=== PATIENT | male | born 1955 | race Caucasian/White ===

== ENCOUNTER 2017-06-26 20:40 | Inpatient (IN) | payer MEDICAID ==
[~2017-06-26] VITALS: Ht 172.7 cm; Wt 73.6 kg
[2017-06-26] MEDS ORDERED: MORPHINE SULFATE 4 MG/ML, 1ML ONE ×2 (21:30→23:55)
[2017-06-26] MEDS ORDERED: ONDANSETRON 2MG/ML, 2ML ONE (21:30)
[2017-06-26] MEDS ORDERED: SODIUM CHLORIDE 0.9% 1,000ML IVBOLUS ONE (21:30)
[2017-06-26] MEDS ORDERED: ONDANSETRON 2MG/ML, 2ML IVPush ONE (21:30)
[2017-06-26] MEDS: MORPHINE SULFATE 4 MG/ML, 1ML IVPush PRN (21:36)
[2017-06-26 21:50] LABS: HEMOGLOBIN 15.9 g/dL (13.7-18.0)
[2017-06-26 22:04] LABS: ASPARTATE AMINO TRANSFERASE 26 U/L (15-37); BLOOD UREA NITROGEN 22 mg/dL (7-18)
[2017-06-26] MEDS ORDERED: OMNIPAQUE 350 MG/ML, 100ML BOTTLE ONE (22:50)
[2017-06-26] MEDS ORDERED: CEFTRIAXONE PMX 1GM/50ML 50 ML IV ONE (23:30)
[2017-06-26] MEDS ORDERED: GENTAMICIN PER PHARMACY MC PRN (23:30)
[2017-06-26] MEDS ORDERED: GENTAMICIN 340 MG in SODIUM CHLORIDE 0.9% 100 ML IV ONE (23:30)
[2017-06-26] MEDS ORDERED: CEFTRIAXONE PMX 1GM/50ML 50 ML ONE (23:55)
[2017-06-27] MEDS: MORPHINE SULFATE 4 MG/ML, 1ML IVPush PRN (00:14)
[2017-06-27] MEDS ORDERED: morphine SULFATE 10 MG/ML, 1ML IVPush ONE (01:00)
[2017-06-27] MEDS ORDERED: SODIUM CHLORIDE 0.9% 1,000 ML IV SCH (03:38)
[2017-06-27] MEDS ORDERED: POLYETHYLENE GLYCOL 17 GM PACKET PO PRN (04:00)
[2017-06-27] MEDS ORDERED: BISACODYL 10 MG SUPP PR PRN (04:00)
[2017-06-27] MEDS ORDERED: VANCOMYCIN PER PHARMACY MC PRN (04:00)
[2017-06-27] MEDS ORDERED: DOCUSATE 100 MG CAPSULE PO PRN (04:00)
[2017-06-27] MEDS ORDERED: ENOXAPARIN 40 MG/0.4 ML SQ SCH (04:00)
[2017-06-27 04:03] VITALS: BP 178/110
[2017-06-27] MEDS: morphine SULFATE 10 MG/ML, 1ML IVPush PRN ×5 (04:22→19:56)
[2017-06-27] MEDS ORDERED: VANCOMYCIN 1,400 MG in SODIUM CHLORIDE 0.9% 250 ML IV SCH (04:30)
[2017-06-27 05:28] VITALS: BP 174/103
[2017-06-27 05:33] LABS: HEMATOCRIT 47.7 % (39.2-51.8); HEMOGLOBIN 15.9 g/dL (13.7-18.0); WHITE BLOOD COUNT 17.9 x10^3/uL (3.4-10)
[2017-06-27 05:56] LABS: ASPARTATE AMINO TRANSFERASE 42 U/L (15-37); BLOOD UREA NITROGEN 17 mg/dL (7-18)
[2017-06-27] MEDS ORDERED: PHARMACOKINETIC MONITORING MC PRN (06:00)
[2017-06-27] MEDS ORDERED: PHARMACOKINETIC CONSULTATION MC ONE (06:00)
[2017-06-27 06:10] LABS: LACTATE DEHYDROGENASE 557 U/L (87-241)
[2017-06-27 06:15] LABS: IS PT STATUS REG ER OR PRE ER? NO
[2017-06-27 07:17] VITALS: BP 170/101
[2017-06-27] MEDS ORDERED: HEPARIN 25,000 UNITS/500ML PMX 500 ML IV PRN (08:30)
[2017-06-27] MEDS: ASPIRIN 81 MG TABLET EC PO SCH (08:42)
[2017-06-27] MEDS: NICOTINE 14MG/24 HR PATCH.TD24 TD SCH (08:42)
[2017-06-27] MEDS ORDERED: ONDANSETRON 2MG/ML, 2ML IVPush PRN (09:00)
[2017-06-27] MEDS ORDERED: HEPARIN 5,000 UNITS/ML, 1ML IV ONE (09:00)
[2017-06-27] MEDS: FAMOTIDINE 20 MG TABLET PO SCH ×2 (09:05→19:55)
[2017-06-27 11:40] LABS: IS PT STATUS REG ER OR PRE ER? NO
[2017-06-27] MEDS: AMLODIPINE 5 MG TABLET PO SCH (11:42)
[2017-06-27] MEDS: LISINOPRIL 10 MG TABLET PO SCH (11:42)
[2017-06-27 12:14] LABS: PATH.CAST-FLAG NOT PRESENT; SPERM-FLAG NOT PRESENT; SRC-FLAG NOT PRESENT; XTAL-FLAG NOT PRESENT; YLC-FLAG NOT PRESENT
[2017-06-27 12:20] VITALS: BP 172/113
[2017-06-27] MEDS: HEPARIN 25,000 UNITS/500ML PMX 500 ML IV PRN (13:56)
[2017-06-27] MEDS ORDERED: CYCL-259 PO (16:46)
[2017-06-27] MEDS ORDERED: CLOP75TA52 PO (16:47)
[2017-06-27] MEDS ORDERED: LISI-420 PO (16:47)
[2017-06-27] MEDS ORDERED: TRAZ50TA18 PO (16:47)
[2017-06-27] MEDS ORDERED: CHOL500050 PO (16:47)
[2017-06-27] MEDS ORDERED: ATOR20TA9 PO (16:47)
[2017-06-27] MEDS ORDERED: OXYC10TA72 PO (16:47)
[2017-06-27] MEDS ORDERED: PANT40GR PO (16:47)
[2017-06-27] MEDS: CEFTRIAXONE PMX 1GM/50ML 50 ML IV SCH (19:55)
[2017-06-27 20:16] VITALS: BP 160/94
[2017-06-27] MEDS: HEPARIN 5,000 UNITS/ML, 1ML IV PRN (21:29)
[2017-06-27] MEDS: TRAZODONE 100MG TABLET PO PRN (21:32)
[2017-06-28 01:22] VITALS: BP 148/90
[2017-06-28 03:44] LABS: HEMOGLOBIN 16.2 g/dL (13.7-18.0)
[2017-06-28 03:52] LABS: ASPARTATE AMINO TRANSFERASE 62 U/L (15-37); BLOOD UREA NITROGEN 12 mg/dL (7-18)
[2017-06-28] MEDS: morphine SULFATE 10 MG/ML, 1ML IVPush PRN ×6 (03:57→23:35)
[2017-06-28 07:39] VITALS: BP 154/97
[2017-06-28] MEDS: LISINOPRIL 10 MG TABLET PO SCH (08:13)
[2017-06-28] MEDS: FAMOTIDINE 20 MG TABLET PO SCH ×2 (08:13→20:11)
[2017-06-28] MEDS: ASPIRIN 81 MG TABLET EC PO SCH (08:14)
[2017-06-28] MEDS: NICOTINE 14MG/24 HR PATCH.TD24 TD SCH (08:14)
[2017-06-28] MEDS: AMLODIPINE 5 MG TABLET PO SCH (08:14)
[2017-06-28] MEDS: HEPARIN 5,000 UNITS/ML, 1ML IV PRN ×2 (10:09→23:58)
[2017-06-28] MEDS: HEPARIN 25,000 UNITS/500ML PMX 500 ML IV PRN (13:37)
[2017-06-28 14:01] VITALS: BP 150/94
[2017-06-28 16:06] VITALS: BP 142/89
[2017-06-28 16:53] LABS: BLOOD UREA NITROGEN 15 mg/dL (7-18)
[2017-06-28] MEDS: CEFTRIAXONE PMX 1GM/50ML 50 ML IV SCH (20:10)
[2017-06-28] MEDS: TRAZODONE 100MG TABLET PO PRN (20:11)
[2017-06-28 20:21] VITALS: BP 116/72
[2017-06-29] MEDS: HEPARIN 25,000 UNITS/500ML PMX 500 ML IV PRN ×2 (00:05→08:20)
[2017-06-29 01:46] VITALS: BP 113/71
[2017-06-29] MEDS: morphine SULFATE 10 MG/ML, 1ML IVPush PRN (04:15)
[2017-06-29 06:06] LABS: WHITE BLOOD COUNT 19.1 x10^3/uL (3.4-10)
[2017-06-29] MEDS: METOPROLOL SUCCINATE 25 MG TAB.ER.24H PO SCH (06:18)
[2017-06-29 06:23] LABS: ASPARTATE AMINO TRANSFERASE 21 U/L (15-37); BLOOD UREA NITROGEN 15 mg/dL (7-18)
[2017-06-29 06:42] VITALS: BP 127/82
[2017-06-29] MEDS: OXYcodone IR 5MG TABLET PO SCH ×4 (08:12→20:49)
[2017-06-29] MEDS ORDERED: REGADENOSON 0.4 MG/5 ML SYRINGE ONE (08:25)
[2017-06-29] MEDS: LISINOPRIL 10 MG TABLET PO SCH (11:31)
[2017-06-29] MEDS: FAMOTIDINE 20 MG TABLET PO SCH ×2 (11:31→20:49)
[2017-06-29] MEDS: AMLODIPINE 5 MG TABLET PO SCH (11:31)
[2017-06-29] MEDS: ASPIRIN 81 MG TABLET EC PO SCH (11:31)
[2017-06-29] MEDS: NICOTINE 14MG/24 HR PATCH.TD24 TD SCH (11:31)
[2017-06-29] MEDS: HEPARIN 5,000 UNITS/ML, 1ML IV PRN (12:41)
[2017-06-29 12:54] VITALS: BP 110/66
[2017-06-29] MEDS ORDERED: WARFARIN 7.5 MG TABLET PO-COUM ONE (18:00)
[2017-06-29 19:59] VITALS: BP 105/67
[2017-06-29] MEDS: CEFTRIAXONE PMX 1GM/50ML 50 ML IV SCH (20:49)
[2017-06-29] MEDS: TRAZODONE 100MG TABLET PO PRN (20:50)
[2017-06-30] MEDS: HEPARIN 25,000 UNITS/500ML PMX 500 ML IV PRN ×2 (01:23→16:00)
[2017-06-30 01:30] VITALS: BP 102/69
[2017-06-30 01:35] LABS: HEMATOCRIT 40.3 % (39.2-51.8); HEMOGLOBIN 13.2 g/dL (13.7-18.0); WHITE BLOOD COUNT 15.3 x10^3/uL (3.4-10)
[2017-06-30] MEDS: HEPARIN 5,000 UNITS/ML, 1ML IV PRN (02:24)
[2017-06-30] MEDS: morphine SULFATE 10 MG/ML, 1ML IVPush PRN (03:08)
[2017-06-30 06:01] LABS: BLOOD UREA NITROGEN 19 mg/dL (7-18)
[2017-06-30 06:04] VITALS: BP 136/91
[2017-06-30] MEDS: METOPROLOL SUCCINATE 25 MG TAB.ER.24H PO SCH (06:05)
[2017-06-30 07:20] VITALS: BP 111/86
[2017-06-30] MEDS: FAMOTIDINE 20 MG TABLET PO SCH ×2 (08:34→20:43)
[2017-06-30] MEDS: AMLODIPINE 5 MG TABLET PO SCH (08:34)
[2017-06-30] MEDS: LISINOPRIL 10 MG TABLET PO SCH (08:34)
[2017-06-30] MEDS: OXYcodone IR 5MG TABLET PO SCH ×3 (08:37→20:44)
[2017-06-30] MEDS: NICOTINE 14MG/24 HR PATCH.TD24 TD SCH (08:40)
[2017-06-30] MEDS: DOCUSATE 100 MG CAPSULE PO SCH ×2 (08:46→20:43)
[2017-06-30] MEDS: CEFUROXIME 500 MG TABLET PO SCH ×2 (10:48→20:43)
[2017-06-30] MEDS: WARFARIN MODERAT DOSE PROTOCOL XX SCH (12:00)
[2017-06-30 15:42] VITALS: BP 110/75
[2017-06-30] MEDS ORDERED: WARFARIN 7.5 MG TABLET PO-COUM ONE (18:00)
[2017-06-30 19:50] VITALS: BP 113/81
[2017-06-30] MEDS: TRAZODONE 100MG TABLET PO PRN (20:43)
[2017-07-01 00:58] VITALS: BP 145/94
[2017-07-01 05:23] LABS: HEMATOCRIT 42.5 % (39.2-51.8); HEMOGLOBIN 14.3 g/dL (13.7-18.0); WHITE BLOOD COUNT 13.3 x10^3/uL (3.4-10)
[2017-07-01 05:31] LABS: ANTI-Xa-UNFRACTIONATED HEP 0.56 IU/mL (0.30-0.70)
[2017-07-01 05:33] VITALS: BP 126/90
[2017-07-01] MEDS: METOPROLOL SUCCINATE 25 MG TAB.ER.24H PO SCH (05:34)
[2017-07-01 05:36] LABS: ASPARTATE AMINO TRANSFERASE 17 U/L (15-37); BLOOD UREA NITROGEN 16 mg/dL (7-18)
[2017-07-01] MEDS: HEPARIN 25,000 UNITS/500ML PMX 500 ML IV PRN ×2 (06:18→20:48)
[2017-07-01 07:50] VITALS: BP 101/60
[2017-07-01] MEDS: OXYcodone IR 5MG TABLET PO SCH ×3 (07:53→20:41)
[2017-07-01] MEDS: DOCUSATE 100 MG CAPSULE PO SCH ×2 (09:53→20:40)
[2017-07-01] MEDS: NICOTINE 14MG/24 HR PATCH.TD24 TD SCH (09:53)
[2017-07-01] MEDS: AMLODIPINE 5 MG TABLET PO SCH (09:54)
[2017-07-01] MEDS: CEFUROXIME 500 MG TABLET PO SCH ×2 (09:54→20:40)
[2017-07-01] MEDS: LISINOPRIL 10 MG TABLET PO SCH (09:54)
[2017-07-01] MEDS: FAMOTIDINE 20 MG TABLET PO SCH ×2 (10:00→20:40)
[2017-07-01] MEDS: WARFARIN MODERAT DOSE PROTOCOL XX SCH (12:00)
[2017-07-01 13:11] VITALS: BP 111/74
[2017-07-01] MEDS: CITALOPRAM 20 MG TABLET PO SCH (16:22)
[2017-07-01] MEDS ORDERED: WARFARIN 5 MG TABLET PO-COUM SCH (18:00)
[2017-07-01 21:00] VITALS: BP 143/92
[2017-07-01] MEDS: TRAZODONE 100MG TABLET PO PRN (22:23)
[2017-07-02 01:25] VITALS: BP 94/64
[2017-07-02 04:56] VITALS: BP 133/84
[2017-07-02] MEDS: METOPROLOL SUCCINATE 25 MG TAB.ER.24H PO SCH (04:56)
[2017-07-02 05:27] LABS: ANTI-Xa-UNFRACTIONATED HEP 0.46 IU/mL (0.30-0.70)
[2017-07-02] MEDS: OXYcodone IR 5MG TABLET PO SCH ×2 (06:27→16:33)
[2017-07-02 08:00] VITALS: BP 152/96
[2017-07-02] MEDS: DOCUSATE 100 MG CAPSULE PO SCH ×2 (09:12→20:28)
[2017-07-02] MEDS: CEFUROXIME 500 MG TABLET PO SCH ×2 (09:12→20:27)
[2017-07-02] MEDS: FAMOTIDINE 20 MG TABLET PO SCH ×2 (09:12→20:26)
[2017-07-02] MEDS: CITALOPRAM 20 MG TABLET PO SCH (09:12)
[2017-07-02] MEDS: LISINOPRIL 10 MG TABLET PO SCH (09:13)
[2017-07-02] MEDS: NICOTINE 14MG/24 HR PATCH.TD24 TD SCH (09:13)
[2017-07-02] MEDS: WARFARIN MODERAT DOSE PROTOCOL XX SCH (12:04)
[2017-07-02 12:32] VITALS: BP 132/87
[2017-07-02] MEDS: HEPARIN 25,000 UNITS/500ML PMX 500 ML IV PRN (12:55)
[2017-07-02] MEDS ORDERED: WARFARIN 7.5 MG TABLET PO-COUM ONE (18:00)
[2017-07-02 18:55] VITALS: BP 140/85
[2017-07-02] MEDS: TRAZODONE 100MG TABLET PO PRN (20:27)
[2017-07-03 01:00] VITALS: BP 124/85
[2017-07-03] MEDS: OXYcodone IR 5MG TABLET PO PRN ×3 (01:06→17:35)
[2017-07-03] MEDS: HEPARIN 25,000 UNITS/500ML PMX 500 ML IV PRN ×2 (05:06→20:58)
[2017-07-03] MEDS: METOPROLOL SUCCINATE 25 MG TAB.ER.24H PO SCH (05:07)
[2017-07-03 06:00] LABS: ANTI-Xa-UNFRACTIONATED HEP 0.36 IU/mL (0.30-0.70)
[2017-07-03 06:05] LABS: HEMATOCRIT 40.3 % (39.2-51.8); HEMOGLOBIN 13.6 g/dL (13.7-18.0); WHITE BLOOD COUNT 9.6 x10^3/uL (3.4-10)
[2017-07-03 06:10] LABS: BLOOD UREA NITROGEN 16 mg/dL (7-18)
[2017-07-03 07:48] VITALS: BP 130/75
[2017-07-03 08:25] VITALS: BP 130/75
[2017-07-03] MEDS: DOCUSATE 100 MG CAPSULE PO SCH ×2 (09:28→21:08)
[2017-07-03] MEDS: NICOTINE 14MG/24 HR PATCH.TD24 TD SCH (09:28)
[2017-07-03] MEDS: CITALOPRAM 20 MG TABLET PO SCH (09:28)
[2017-07-03] MEDS: LISINOPRIL 10 MG TABLET PO SCH (09:28)
[2017-07-03] MEDS: CEFUROXIME 500 MG TABLET PO SCH (11:08)
[2017-07-03] MEDS ORDERED: MAGNESIUM SULFATE PMX 2GM/50ML 50 ML IV ONE (12:00)
[2017-07-03] MEDS: WARFARIN MODERAT DOSE PROTOCOL XX SCH (12:23)
[2017-07-03 15:06] VITALS: BP 133/89
[2017-07-03] MEDS ORDERED: WARFARIN 7.5 MG TABLET PO-COUM ONE (18:00)
[2017-07-03 20:32] VITALS: BP 143/85
[2017-07-03] MEDS: TRAZODONE 100MG TABLET PO PRN (21:08)
[2017-07-04] MEDS: OXYcodone IR 5MG TABLET PO PRN ×3 (01:25→17:25)
[2017-07-04 01:30] VITALS: BP 145/85
[2017-07-04 04:41] LABS: HEMATOCRIT 40.9 % (39.2-51.8); HEMOGLOBIN 13.7 g/dL (13.7-18.0); WHITE BLOOD COUNT 11.5 x10^3/uL (3.4-10)
[2017-07-04 04:45] LABS: ANTI-Xa-UNFRACTIONATED HEP 0.49 IU/mL (0.30-0.70)
[2017-07-04 04:52] LABS: BLOOD UREA NITROGEN 18 mg/dL (7-18)
[2017-07-04] MEDS: METOPROLOL SUCCINATE 25 MG TAB.ER.24H PO SCH (05:47)
[2017-07-04] MEDS: CITALOPRAM 20 MG TABLET PO SCH (09:07)
[2017-07-04] MEDS: DOCUSATE 100 MG CAPSULE PO SCH ×2 (09:08→20:51)
[2017-07-04] MEDS: LISINOPRIL 10 MG TABLET PO SCH (09:08)
[2017-07-04] MEDS: NICOTINE 14MG/24 HR PATCH.TD24 TD SCH (09:09)
[2017-07-04] MEDS: WARFARIN MODERAT DOSE PROTOCOL XX SCH (12:00)
[2017-07-04 12:47] VITALS: BP 107/61
[2017-07-04] MEDS: HEPARIN 25,000 UNITS/500ML PMX 500 ML IV PRN (12:58)
[2017-07-04] MEDS ORDERED: WARFARIN 7.5 MG TABLET PO-COUM SCH (18:00)
[2017-07-04] MEDS: TRAZODONE 100MG TABLET PO PRN (20:52)
[2017-07-05 01:48] VITALS: BP 124/90
[2017-07-05] MEDS: OXYcodone IR 5MG TABLET PO PRN ×2 (01:52→09:57)
[2017-07-05] MEDS: METOPROLOL SUCCINATE 25 MG TAB.ER.24H PO SCH (05:26)
[2017-07-05] MEDS: HEPARIN 25,000 UNITS/500ML PMX 500 ML IV PRN (05:27)
[2017-07-05 07:10] VITALS: BP 127/90
[2017-07-05] MEDS: DOCUSATE 100 MG CAPSULE PO SCH (09:56)
[2017-07-05] MEDS: CITALOPRAM 20 MG TABLET PO SCH (09:56)
[2017-07-05] MEDS: LISINOPRIL 10 MG TABLET PO SCH (09:57)
[2017-07-05] MEDS: NICOTINE 14MG/24 HR PATCH.TD24 TD SCH (09:57)
[2017-07-05] MEDS: WARFARIN MODERAT DOSE PROTOCOL XX SCH (12:00)
[2017-07-05 13:10] VITALS: BP 113/59
[2017-07-05] MEDS ORDERED: LISI-167 PO (14:06)
[2017-07-05] MEDS ORDERED: NICO1PAT13 TD (14:06)
[2017-07-05] MEDS ORDERED: WARF7.5T PO-COUM (14:06)
[2017-07-05] MEDS ORDERED: METO25TA91 PO (14:06)
[2017-07-05] MEDS ORDERED: WARFARIN 7.5 MG TABLET PO-COUM SCH (18:00)
== END 2017-07-05 16:40 | disposition home or self-care (01) | DRG 699 ==
LOC: ED 23:59 → EDIP 06-27 01:14 → 3NW 06-27 03:15 → 4WST 06-27 06:29 → DCLOUNGE 07-05 16:12
PROVIDERS: ADMIT Hospitalist; ATTEND Internal Medicine
DX: N28.0 Ischemia and infarction of kidney (principal); D68.69 Other thrombophilia; I11.9 Hypertensive heart disease without heart failure; I48.92 Unspecified atrial flutter; D72.829 Elevated white blood cell count, unspecified; E78.00 Pure hypercholesterolemia, unspecified; E78.5 Hyperlipidemia, unspecified; F17.200 Nicotine dependence, unspecified, uncomplicated; F32.9 Major depressive disorder, single episode, unspecified; F41.9 Anxiety disorder, unspecified; G89.4 Chronic pain syndrome; I27.2 Other secondary pulmonary hypertension; M19.90 Unspecified osteoarthritis, unspecified site; M54.9 Dorsalgia, unspecified; I48.0 Paroxysmal atrial fibrillation; K21.9 Gastro-esophageal reflux disease without esophagitis; K59.00 Constipation, unspecified; Z79.01 Long term (current) use of anticoagulants; Z79.891 Long term (current) use of opiate analgesic; Z82.49 Family history of ischemic heart disease and other diseases of the circulatory system; Z85.46 Personal history of malignant neoplasm of prostate; Z86.73 Personal history of transient ischemic attack (TIA), and cerebral infarction without residual deficits; Z90.89 Acquired absence of other organs; Z88.8 Allergy status to other drugs, medicaments and biological substances; Z88.6 Allergy status to analgesic agent
CPT/HCPCS: 36415; 71010; 74177; 76775; 78452; 80048; 80053; 80061; 81001; 82040; 83605; 83615; 83735; 84100; 84145; 84484; 85025; 85520; 85610; 85651; 87040; 93005; 93017; 93306; 93970; 93975; 96361; 96365; 96375; 96376; J0696; J1644; J2405; J2785; J3370; Q9967; A9502; C9898; J1580; J2270; J3475; J7030; J7050

== ENCOUNTER 2019-02-06 17:45 | Inpatient (IN) | payer MEDICARE, MEDICAID ==
[~2019-02-06] VITALS: Ht 172.7 cm; Wt 73.5 kg
[~2019-02-06 17:45] MED LIST: ATOR20TA37 PO; CHOL500050 PO; CLOP75TA52 PO; CYCL-259 PO; LISI-167 PO; LISI-420 PO; METO25TA91 PO; NICO-486 TD; OXYC10TA72 PO; PANT40GR PO; TRAZ50TA66 PO; WARF-36 PO; WARF7.5T PO-COUM
[2019-02-06] MEDS ORDERED: SODIUM CHLORIDE 0.9% 1,000ML IVBOLUS ONE (18:30)
[2019-02-06] MEDS ORDERED: SODIUM CHLORIDE FLUSH 10ML SYR IVF ONE (18:30)
[2019-02-06] MEDS ORDERED: OXYC5TAB3 PO (18:37)
[2019-02-06] MEDS ORDERED: CETI10CA PO (18:39)
[2019-02-06] MEDS ORDERED: TRAZ50TA66 PO (18:40)
[2019-02-06 18:43] LABS: MEAN CORPUSCULAR HEMOGLOBIN 32.3 pg (27.5-34.5); MEAN CORPUSCULAR HGB CONC 33.9 g/dL (33.2-36.2); MEAN CORPUSCULAR VOLUME 95.4 fL (81-97); MEAN PLATELET VOLUME 8.3 fL (7.4-10.4); PLATELET COUNT 248 x10^3/uL (130-400); RED BLOOD COUNT 5.51 x10^6/uL (4.38-5.82); RED CELL DISTRIBUTION WIDTH 13.3 % (9.4-14.8)
[2019-02-06 18:46] LABS: INTERNATIONAL NORMALIZED RATIO 2.84 (0.93-1.1); PROTHROMBIN TIME 28.6 Seconds (9.6-11.5)
[2019-02-06 18:49] LABS: ALANINE AMINOTRANSFERASE 25 U/L (12-78); ALBUMIN 3.9 g/dL (3.4-5.0); ANION GAP 8 mmol/L (5-15); CALCIUM 8.9 mg/dL (8.5-10.1); CHLORIDE 106 mmol/L (98-107); CREATININE 1.14 mg/dL (0.7-1.3)
[2019-02-06 18:51] LABS: ALKALINE PHOSPHATASE 47 U/L (45-117); BILIRUBIN,TOTAL 1.6 mg/dL (0.2-1.0); TOTAL PROTEIN 7.1 g/dL (6.4-8.2)
[2019-02-06] MEDS ORDERED: MORPHINE SULFATE 4 MG/ML, 1ML IVPush ONE (19:00)
[2019-02-06] MEDS ORDERED: ONDANSETRON 2MG/ML, 2ML IVPush ONE (19:00)
--- NOTE | 2019-02-06 19:00 | NUR ---
PT BEDSIDE REPORT FROM [place] GUSTAFSON. THIS RN TO ASSUME CARE OF PT. PT REQUESTING PAIN MEDICATION. MD AWARE. AWAITING NEW ORDERS.
[2019-02-06] MEDS ORDERED: ONDANSETRON 2MG/ML, 2ML ONE (19:03)
[2019-02-06] MEDS ORDERED: MORPHINE SULFATE 4 MG/ML, 1ML ONE (19:03)
[2019-02-06 19:32] LABS: MD YES
--- NOTE | 2019-02-06 19:33 | NUR ---
PT MEDICATED PER DEC. NO IMMEDIATE NEEDS. TBADM. AWAITING ADM ORDERS.
[2019-02-06 19:34] LABS: BAND#(MANUAL) 0.42 x10^3/uL; BANDS%(MANUAL) 2 % (0-7); LYMPH#(MANUAL) 1.68 x10^3/uL (1-3.4); LYMPHS% (MANUAL) 8 % (22-44); MONOS#(MANUAL) 1.68 x10^3/uL (0.3-2.7); MONOS% (MANUAL) 8 % (2-9); SEG#(MANUAL) 17.22 x10^3/uL (1.8-6.8); SEGS% (MANUAL) 82 % (42-75)
[2019-02-06 19:35] LABS: <PLATELET ESTIMATE> ADEQUATE; <RBC MORPHOLOGY> NORMAL
[2019-02-06 19:36] LABS: <PLT MORPHOLOGY> NORMAL PLT MORPH
[2019-02-06] MEDS ORDERED: METRONIDAZOLE PMX 500MG/100ML 100 ML ONE (19:36)
[2019-02-06] MEDS ORDERED: CEFTRIAXONE PMX 1GM/50ML 50 ML ONE (19:37)
[2019-02-06] MEDS ORDERED: CEFTRIAXONE PMX 1GM/50ML 50 ML IV ONE (20:00)
[2019-02-06] MEDS ORDERED: METRONIDAZOLE PMX 500MG/100ML 100 ML IV ONE (20:00)
--- NOTE | 2019-02-06 20:09 | NUR ---
AT BEDSIDE FOR REASSESSMENT. 2ND ABX INITIATED AT HTIS TIME.
--- NOTE | 2019-02-06 20:36 | NUR ---
PT TBADM. AWAITING ADM ORDER.
[2019-02-06] MEDS: METRONIDAZOLE PMX 500MG/100ML 100 ML IV SCH (20:50)
[2019-02-06] MEDS: SODIUM CHLORIDE 0.9% 1,000 ML IV SCH (20:57)
[2019-02-06] MEDS ORDERED: PHYTONADIONE 5 MG TABLET PO ONE (21:00)
[2019-02-06] MEDS ORDERED: CEFTRIAXONE PMX 1GM/50ML 50 ML IV SCH (21:00)
[2019-02-06] MEDS ORDERED: ACETAMINOPHEN 325 MG TABLET PO PRN (21:00)
[2019-02-06] MEDS ORDERED: CYCLOBENZAPRINE 10 MG TABLET PO PRN (21:00)
[2019-02-06] MEDS ORDERED: ONDANSETRON 2MG/ML, 2ML IVPush PRN (21:00)
[2019-02-06 21:21] LABS: INTERNATIONAL NORMALIZED RATIO 2.79 (0.93-1.1); PROTHROMBIN TIME 28.2 Seconds (9.6-11.5)
[2019-02-06] MEDS ORDERED: MAGNESIUM CITRATE 300ML ORAL SOL PO ONE (22:00)
[2019-02-06 22:09] VITALS: BP 160/92
[2019-02-06 22:22] LABS: BILIRUBIN, DIRECT 0.4 mg/dL (0.1-0.2)
[2019-02-06 22:23] LABS: BILIRUBIN,INDIRECT 1.2 mg/dL (0.0-2.0); BILIRUBIN,TOTAL 1.6 mg/dL (0.2-1.0)
[2019-02-06] MEDS: morphine SULFATE 10 MG/ML, 1ML IVPush PRN (22:54)
[2019-02-06] MEDS: TRAZODONE 100MG TABLET PO SCH (22:54)
[2019-02-06] MEDS: ATORVASTATIN 20 MG TABLET PO SCH (22:56)
[2019-02-07] MEDS ORDERED: OMNIPAQUE 350 MG/ML, 100ML BOTTLE ONE (02:16)
[2019-02-07] MEDS: morphine SULFATE 10 MG/ML, 1ML IVPush PRN ×3 (02:46→08:20)
[2019-02-07 02:54] VITALS: BP 135/83
[2019-02-07 03:51] LABS: CLOSTRIDIUM DIFFICILE ANTIGEN NEGATIVE; CLOSTRIDIUM DIFFICILE TOXIN NEGATIVE (Negative)
[2019-02-07] MEDS: METRONIDAZOLE PMX 500MG/100ML 100 ML IV SCH (05:33)
[2019-02-07] MEDS: METOPROLOL SUCCINATE 25 MG TAB.ER.24H PO SCH (05:34)
[2019-02-07 06:58] LABS: ALANINE AMINOTRANSFERASE 20 U/L (12-78); ALBUMIN 3.5 g/dL (3.4-5.0); ANION GAP 2 mmol/L (5-15); CALCIUM 8.2 mg/dL (8.5-10.1); CHLORIDE 108 mmol/L (98-107); CREATININE 1.03 mg/dL (0.7-1.3)
[2019-02-07 06:59] LABS: MEAN CORPUSCULAR HGB CONC 34.4 g/dL (33.2-36.2); MEAN CORPUSCULAR VOLUME 95.8 fL (81-97); MEAN PLATELET VOLUME 8.4 fL (7.4-10.4); PLATELET COUNT 220 x10^3/uL (130-400); RED BLOOD COUNT 4.94 x10^6/uL (4.38-5.82); RED CELL DISTRIBUTION WIDTH 13.8 % (9.4-14.8)
[2019-02-07 07:00] LABS: ALKALINE PHOSPHATASE 38 U/L (45-117); BILIRUBIN,TOTAL 1.3 mg/dL (0.2-1.0); TOTAL PROTEIN 6.2 g/dL (6.4-8.2)
[2019-02-07 07:29] LABS: BASOPHILS # (AUTO) 0.08 x10^3/uL (0-0.1); BASOPHILS % (AUTO) 0 % (0-1); EOSINOPHILS # (AUTO) 0.09 x10^3/uL (0-0.4); EOSINOPHILS % (AUTO) 1 % (1-7); LYMPHOCYTES % (AUTO) 14 % (22-44); MD SCAN; MONOCYTES % (AUTO) 6 % (2-9); NEUTROPHILS # (AUTO) 14.57 x10^3/uL (1.8-6.8); NEUTROPHILS % (AUTO) 79 % (42-75)
[2019-02-07] MEDS ORDERED: ERGOCALCIFEROL 50,000 UNIT CAPSULE PO SCH (08:00)
[2019-02-07] MEDS: LISINOPRIL 10 MG TABLET PO SCH (08:05)
[2019-02-07] MEDS ORDERED: PANTOPRAZOLE GRAN. PKT 40 MG PO SCH (09:00)
[2019-02-07] MEDS ORDERED: FENTANYL PF 100 MCG/2ML ONE ×2 (09:32→09:33)
[2019-02-07] MEDS ORDERED: MIDAZOLAM 1 MG/ML, 5ML ONE (09:33)
[2019-02-07] MEDS ORDERED: OXYcodone IR 5MG TABLET ONE (11:48)
[2019-02-07] MEDS: OXYcodone IR 5MG TABLET PO PRN ×2 (11:51→20:33)
[2019-02-07] MEDS ORDERED: OXYcodone 5 MG/5 ML ORAL.SOL UDC PO PRN (12:00)
[2019-02-07 12:17] VITALS: BP 107/68
[2019-02-07 12:34] LABS: CRYPTOSPORIDIUM ANTIGEN Negative (Negative)
[2019-02-07] MEDS: SODIUM CHLORIDE 0.9% 1,000 ML IV SCH (13:32)
[2019-02-07] MEDS ORDERED: NICOTINE 14MG/24 HR PATCH.TD24 TD SCH (16:30)
[2019-02-07] MEDS ORDERED: WARFARIN 5 MG TABLET PO-COUM SCH (18:00)
[2019-02-07 19:56] VITALS: BP 123/86
[2019-02-07] MEDS: ATORVASTATIN 20 MG TABLET PO SCH (20:33)
[2019-02-07] MEDS: TRAZODONE 100MG TABLET PO SCH (20:33)
[2019-02-07] MEDS ORDERED: CETIRIZINE 10 MG TABLET PO SCH (21:00)
[2019-02-08 01:02] VITALS: BP 103/61
[2019-02-08] MEDS: SODIUM CHLORIDE 0.9% 1,000 ML IV SCH (03:20)
[2019-02-08] MEDS: OXYcodone IR 5MG TABLET PO PRN (05:21)
[2019-02-08] MEDS: METOPROLOL SUCCINATE 25 MG TAB.ER.24H PO SCH (05:21)
[2019-02-08] MEDS ORDERED: PANTOPROZOLE 40MG TABLET PO SCH (06:00)
[2019-02-08 08:11] VITALS: BP 136/86
[2019-02-08] MEDS: LISINOPRIL 10 MG TABLET PO SCH (08:13)
[2019-02-08 08:19] LABS: BASOPHILS # (AUTO) 0.07 x10^3/uL (0-0.1); BASOPHILS % (AUTO) 1 % (0-1); EOSINOPHILS # (AUTO) 0.24 x10^3/uL (0-0.4); EOSINOPHILS % (AUTO) 2 % (1-7); LYMPHOCYTES # (AUTO) 2.19 x10^3/uL (1-3.4); LYMPHOCYTES % (AUTO) 19 % (22-44); MD NO; MEAN CORPUSCULAR HEMOGLOBIN 31.4 pg (27.5-34.5); MEAN CORPUSCULAR HGB CONC 32.6 g/dL (33.2-36.2); MEAN CORPUSCULAR VOLUME 96.2 fL (81-97); MEAN PLATELET VOLUME 8.1 fL (7.4-10.4); MONOCYTES # (AUTO) 0.64 x10^3/uL (0.2-0.8); MONOCYTES % (AUTO) 6 % (2-9); NEUTROPHILS # (AUTO) 8.52 x10^3/uL (1.8-6.8); NEUTROPHILS % (AUTO) 73 % (42-75); PLATELET COUNT 209 x10^3/uL (130-400); RED BLOOD COUNT 4.75 x10^6/uL (4.38-5.82); RED CELL DISTRIBUTION WIDTH 13.7 % (9.4-14.8)
[2019-02-08 08:29] LABS: ANION GAP 7 mmol/L (5-15); CALCIUM 7.9 mg/dL (8.5-10.1); CHLORIDE 110 mmol/L (98-107); CREATININE 0.92 mg/dL (0.7-1.3)
[2019-02-08] MEDS ORDERED: OXYcodone IR 5MG TABLET PO ONE (11:00)
[2019-02-08 13:15] VITALS: BP 116/76
== END 2019-02-08 13:35 | disposition home or self-care (01) | DRG 394 ==
LOC: ED 18:58 → EDIP 20:56 → 4NOR 22:00
PROVIDERS: ADMIT Family Medicine; ATTEND Family Medicine
PROC: 0DBM8ZX Excision of Descending Colon, Via Natural or Artificial Opening Endoscopic, Diagnostic (ICD-10-PCS; 2019-02-07)
PROC: 0DBL8ZX Excision of Transverse Colon, Via Natural or Artificial Opening Endoscopic, Diagnostic (ICD-10-PCS; 2019-02-07)
PROC: 0DBM8ZZ Excision of Descending Colon, Via Natural or Artificial Opening Endoscopic (ICD-10-PCS; principal; 2019-02-07 09:00)
DX: K55.039 Acute (reversible) ischemia of large intestine, extent unspecified (principal); C25.9 Malignant neoplasm of pancreas, unspecified; I27.20 Pulmonary hypertension, unspecified; I48.2 Chronic atrial fibrillation; K21.9 Gastro-esophageal reflux disease without esophagitis; G89.29 Other chronic pain; D12.3 Benign neoplasm of transverse colon; D12.4 Benign neoplasm of descending colon; F17.210 Nicotine dependence, cigarettes, uncomplicated; F32.9 Major depressive disorder, single episode, unspecified; I10 Essential (primary) hypertension; K59.03 Drug induced constipation; M06.9 Rheumatoid arthritis, unspecified; T40.2X5A Adverse effect of other opioids, initial encounter; T45.515A Adverse effect of anticoagulants, initial encounter; Y92.89 Other specified places as the place of occurrence of the external cause; Z79.01 Long term (current) use of anticoagulants; Z79.891 Long term (current) use of opiate analgesic; Z80.1 Family history of malignant neoplasm of trachea, bronchus and lung; Z82.49 Family history of ischemic heart disease and other diseases of the circulatory system; Z85.07 Personal history of malignant neoplasm of pancreas; Z85.46 Personal history of malignant neoplasm of prostate; Z90.89 Acquired absence of other organs
CPT/HCPCS: 36415; 74174; 80048; 80053; 82247; 82248; 83605; 85014; 85018; 85025; 85610; 86850; 86900; 87046; 87324; 87328; 87329; 87427; 88305; 89055; 93005; 96361; 96365; 96375; G0378; J0696; J2250; J2405; J3010; Q9967; J2270; J7030

== ENCOUNTER 2020-06-22 14:40 | Emergency (ER) | payer MEDICARE, MEDICAID ==
[~2020-06-22] VITALS: Ht 172.7 cm; Wt 70.0 kg
[~2020-06-22 14:40] MED LIST changes: +CETI10CA PO; +OXYC5TAB3 PO
[2020-06-22] MEDS ORDERED: SODIUM CHLORIDE FLUSH 10ML SYR IVF ONE (15:00)
[2020-06-22 15:42] LABS: BASOPHILS # (AUTO) 0.04 x10^3/uL (0-0.1); BASOPHILS % (AUTO) 0 % (0-1); EOSINOPHILS # (AUTO) 0.02 x10^3/uL (0-0.4); EOSINOPHILS % (AUTO) 0 % (1-7); LYMPHOCYTES # (AUTO) 1.87 x10^3/uL (1-3.4); LYMPHOCYTES % (AUTO) 19 % (22-44); MD NO; MEAN CORPUSCULAR HEMOGLOBIN 32.1 pg (27.5-34.5); MEAN CORPUSCULAR HGB CONC 32.6 g/dL (33.2-36.2); MEAN CORPUSCULAR VOLUME 98.4 fL (81-97); MEAN PLATELET VOLUME 7.7 fL (7.4-10.4); MONOCYTES # (AUTO) 0.57 x10^3/uL (0.2-0.8); MONOCYTES % (AUTO) 6 % (2-9); NEUTROPHILS # (AUTO) 7.45 x10^3/uL (1.8-6.8); NEUTROPHILS % (AUTO) 75 % (42-75); PLATELET COUNT 310 x10^3/uL (130-400); RED CELL DISTRIBUTION WIDTH 13.9 % (9.4-14.8)
[2020-06-22 15:54] LABS: ALANINE AMINOTRANSFERASE 19 U/L (12-78); ALBUMIN 4.4 g/dL (3.4-5.0); ANION GAP 8 mmol/L (5-15); CALCIUM 9.8 mg/dL (8.5-10.1); CHLORIDE 106 mmol/L (98-107)
[2020-06-22 15:57] LABS: ALKALINE PHOSPHATASE 45 U/L (45-117); BILIRUBIN,TOTAL 1.8 mg/dL (0.2-1.0); TOTAL PROTEIN 7.5 g/dL (6.4-8.2)
--- NOTE | 2020-06-22 16:28 | NUR ---
Provided with ice chips
[2020-06-22] MEDS ORDERED: OMNIPAQUE 350 MG/ML, 100ML BOTTLE ONE (16:29)
--- NOTE | 2020-06-22 16:33 | NUR ---
Pt states feeling anxious, requesting pain meds. Will ntify ERP. UA provided. BP improved since triage.
[2020-06-22 16:52] LABS: MICROSCOPIC NOT IND
[2020-06-22] MEDS ORDERED: MORPHINE SULFATE 4 MG/ML, 1ML IVPush PRN (17:00)
[2020-06-22] MEDS ORDERED: FAMOTIDINE 20 MG/2 ML ONE (17:25)
[2020-06-22] MEDS ORDERED: MORPHINE SULFATE 4 MG/ML, 1ML ONE (17:25)
[2020-06-22] MEDS ORDERED: ONDANSETRON 2MG/ML, 2ML ONE (17:25)
[2020-06-22] MEDS ORDERED: ONDANSETRON 2MG/ML, 2ML IVPush ONE (17:30)
[2020-06-22] MEDS ORDERED: FAMOTIDINE 20 MG/2 ML IVPush ONE (17:30)
[2020-06-22 17:38] VITALS: BP 165/101
--- NOTE | 2020-06-22 17:41 | NUR ---
Medicated for pain and nausea
== END 2020-06-22 18:03 | disposition home or self-care (01) ==
LOC: ED 16:59
DX: R11.2 Nausea with vomiting, unspecified (principal); R10.84 Generalized abdominal pain; I10 Essential (primary) hypertension; I48.91 Unspecified atrial fibrillation; K50.90 Crohn's disease, unspecified, without complications; K21.9 Gastro-esophageal reflux disease without esophagitis; M19.90 Unspecified osteoarthritis, unspecified site; F17.200 Nicotine dependence, unspecified, uncomplicated
CPT/HCPCS: 36415; 74177; 80053; 81003; 83690; 85025; 96374; 96375; 99285; J2270; J2405; J3490; Q9967